=== PATIENT | female | born 1970 | race Caucasian/White ===

== ENCOUNTER 2019-02-16 10:24 | Emergency (ER) | payer BC ==
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
--- NOTE | 2019-02-16 12:21 | Diagnostic Imaging Report ---
Head CT without intravenous contrast Indication: Trauma Comparison: CT facial bones the same day Technique: Axial images were obtained from the vertex to the skull base without IV contrast. Coronal reconstructions were made. Total DLP: 781, CTDI43 FINDINGS: Images of the brain obtained without contrast demonstrate no acute hemorrhage. No mass lesions identified. The ventricles and basal cisterns are patent. The echeverria-white matter differentiation is preserved. There is no mass effect or midline shift. No skull fractures identified. No soft tissue swelling. The paranasal sinuses are clear. IMPRESSION: No acute intracranial abnormality.
--- NOTE | 2019-02-16 12:23 | Diagnostic Imaging Report ---
CT cervical spine without IV contrast HISTORY: Trauma COMPARISON: None Technique: Axial images were obtained from the skull base to the upper thoracic spine without IV contrast. Multiplanar reconstructions were made. Total DLP: 637, CTDI29 FINDINGS: Images of the spine cervical spine obtained without contrast demonstrate no evidence of a fracture or subluxation. The disc spaces are preserved. There is straightening of the cervical lordosis. The disc space heights are preserved. Minimal degenerative changes are noted.. No prevertebral soft tissue swelling. No focal soft tissue abnormalities. The lung apices are clear. IMPRESSION: No evidence of a fracture or subluxation. Straightening of the cervical lordosis which may be due to positioning versus muscle spine.
--- NOTE | 2019-02-16 12:39 | Diagnostic Imaging Report ---
CT facial bones without IV contrast History: Trauma Comparison: CT head the same Technique: Axial images of the facial bones were obtained without IV contrast. Multiplanar reconstructions were made. Total DLP 459, CTD I 22.8 Findings: The bilateral orbital floors are intact. The globes and intraconal compartments are intact. The bilateral zygomatic arches are intact. There is mucosal thickening of the paranasal sinuses. The bilateral TMJ joints are intact. There are no air-fluid levels within the paranasal sinus. No significant focal soft tissue swelling. IMPRESSION: No evidence of an acute fracture.
== END 2019-02-16 13:00 | disposition home or self-care (01) ==
LOC: ER 10:24
DX: S13.4XXA Sprain of ligaments of cervical spine, initial encounter (principal); S16.1XXA Strain of muscle, fascia and tendon at neck level, initial encounter; S00.511A Abrasion of lip, initial encounter; G44.309 Post-traumatic headache, unspecified, not intractable; I10 Essential (primary) hypertension; F32.9 Major depressive disorder, single episode, unspecified; Z90.710 Acquired absence of both cervix and uterus; V43.52XA Car driver injured in collision with other type car in traffic accident, initial encounter; Y93.89 Activity, other specified; Y92.410 Unspecified street and highway as the place of occurrence of the external cause; Y99.8 Other external cause status
CPT/HCPCS: 99284; 96372; 70450; 70486; 72125; 81025; J1885